=== PATIENT | female | born 1990 | race Caucasian/White ===

== ENCOUNTER 2022-08-20 16:02 | Emergency (ER) | payer OTHER, SELFPAY ==
[2022-08-20 16:20] VITALS: BP 125/83; PULSE 71; RESP 20; TEMP 36.8; O2SAT 98; BMI 25.0
[2022-08-20 16:43] LABS: UTC Strep Screen (Rapid) Negative (Negative)
[2022-08-20 16:44] LABS: UTC Influenza A Antigen Negative (Negative); UTC Influenza B Antigen Negative (Negative)
--- NOTE | 2022-08-20 16:51 | EXP.UTC ---
Discharge Plan Disposition Patient Disposition: Home, Self-Care Condition: Good Prescriptions Prescriptions: No Action propranolol 10 mg tablet 10 mg PO levothyroxine [Euthyrox] 50 mcg tablet 50 mcg PO atorvastatin 10 mg tablet 10 mg PO duloxetine 30 mg capsule,delayed release(DR/EC) PO zinc 50 mg tablet 50 mg PO DAILY elderberry fruit 200 mg capsule 200 mg capsule PO ascorbate calcium (vitamin C) 500 mg tablet 500 mg PO DAILY multivitamin Tablet 1 tab PO DAILY spironolactone 50 mg tablet 50 mg PO DAILY Qty: 30 5RF tretinoin 0.025 % cream 1 applic TP HS Qty: 45 0RF Referrals Follow up/Referrals: Provider,Referral, MD [Primary Care Provider] - See instructions Activity Restrictions/Add. Instructions Additional Instructions/Restrictions: covid swab was sent to lab, call tomorrow for results. self isolate until test results are known to be negative No sign of a bacterial infection. Likely viral. Viruses can take 7-14 days to run their course. Nasal saline and bulb syringe or nose Cely to remove nasal drainage to help with nasal congestion. Hard to eat, drink, sleep with nasal congestion so important to keep this cleaned out. Monitor temp. Tylenol or Motrin as needed for pain or fever Encourage fluids, water, Gatorade, Powerade, Pedialyte if /toddler/child Warm salt water gargles Warm fluids Sore throat lozenges Sleep elevated Humidifier/vaporizer Follow-up immediately for new or worsening symptoms or no noticeable improvement over the next 48-72 hours. Clinical Impressions Clinical Impression: Upper respiratory infection Instructions Patient Instructions: DI for Viral Upper Respiratory Infection -- Adult Discharge ED Provider: Anna ([facility] HPI General Stated complaint: Congestion,bodyaches,headaches, sore throat,fever Mode of Arrival: Ambulatory Source of Information: Patient Limitations: No Limitations Time Seen by Provider: 08/20/22 16:51 Description of Symptoms (Recalled from Triage Doc. by RN): PATIENT C/O BODY ACHES, FEVER, SORE THROAT AND CONGESTION HEENT Symptoms (Recalled from RN notes): Yes Resp Symptoms (Recalled from RN notes): No Skin Symptoms (Recalled from RN notes): No MS Symptoms (Recalled from RN notes): No Functional Status (Recalled from RN notes): WNL History of Present Illness Provider Complaint: 32 yr old female presents for fever,body aches, sore throat and congestion since sunday. grandson tested positive for covid Related Data Home Medications Medication Instructions Recorded Confirmed ascorbate calcium (vitamin C) 500 500 mg PO DAILY 04/13/21 04/13/21 mg tablet atorvastatin 10 mg tablet 10 mg PO 04/13/21 04/13/21 duloxetine 30 mg capsule,delayed ea PO 04/13/21 04/13/21 release elderberry fruit 200 mg capsule mg PO 04/13/21 levothyroxine 50 mcg tablet 50 mcg PO 04/13/21 04/13/21 (Euthyrox) multivitamin 1 tab PO DAILY 04/13/21 04/13/21 propranolol 10 mg tablet 10 mg PO 04/13/21 04/13/21 zinc 50 mg tablet 50 mg PO DAILY 04/13/21 04/13/21 Previous Rx's Medication Instructions Recorded spironolactone 50 mg tablet 50 mg PO DAILY #30 tabs 10/13/21 tretinoin 0.025 % topical cream 1 applic topical HS #45 grams 10/17/21 Allergies Allergy/AdvReac Type Severity Reaction Status Date / Time Penicillins Allergy Severe Swells-Oral Verified 04/13/21 11:05 /Throat Worker's Comp Is this a Worker's Comp case?: No [facility] Disclaimer: The information contained in this section may have been updated after the patient was seen, as this information can be updated by other users. Social History (Reviewed 08/20/22 @ 16:55 by Yue Castillo ([facility]), [employer]) Smoking Status: Current every day smoker tobacco type: cigarettes alcohol intake: never substance use type: denies use current occupational status: unemployed Travel in the last 8 weeks: None ROS Obt
[2022-08-20 17:02] VITALS: BP 125/83; PULSE 71; RESP 20; TEMP 36.8; O2SAT 98
== END 2022-08-20 17:07 | disposition home or self-care (01) ==
PROVIDERS: Emergency Provider Nurse Practitioner Family
DX: U07.1 COVID-19 (principal); J06.9 Acute upper respiratory infection, unspecified; R07.0 Pain in throat; R50.9 Fever, unspecified; F17.210 Nicotine dependence, cigarettes, uncomplicated
CPT/HCPCS: 87804; 87880; 99212; 99213; C9803; G0463; U0003; U0005